=== PATIENT | female | born 1995 | race Caucasian/White ===

== ENCOUNTER → 2023-12-14 12:18 | Outpatient (REF) | payer BC, SELFPAY ==
[2023-12-14 20:39] LABS: Hepatitis B Surface Antibody Positive; Hepatitis C Antibody Negative (Negative)
[2023-12-15 13:24] LABS: HIV Combo Negative (Negative)
== END ==
LOC: REG 12:18
PROVIDERS: ATTENDING PHYSICIAN Obstetrics & Gynecology; FAMILY PHYSICIAN Nurse Practitioner Family
DX: Z11.3 Encounter for screening for infections with a predominantly sexual mode of transmission (principal)
CPT/HCPCS: 36415; 86706; 86803; 87389

== ENCOUNTER → 2024-01-25 06:26 | Day surgery (SDC) | payer BC, SELFPAY | LOC: GI 06:26 | PROVIDERS: ATTENDING PHYSICIAN Internal Medicine Gastroenterology; FAMILY PHYSICIAN Nurse Practitioner Family | DX: R19.4 Change in bowel habit (principal) | CPT/HCPCS: 45380; 88305 ==

== ENCOUNTER → 2024-02-12 06:36 | Outpatient (REF) | payer BC, SELFPAY ==
[2024-02-14 18:50] LABS: Quantiferon NIL 0.08 IU/mL; Quantiferon TB Gold Plus Negative (Negative)
== END ==
LOC: REG 06:36
PROVIDERS: ATTENDING PHYSICIAN Nurse Practitioner Family
DX: Z00.00 Encounter for general adult medical examination without abnormal findings (principal)
CPT/HCPCS: 36415; 86480